=== PATIENT | male | born 1955 | race Caucasian/White ===

== ENCOUNTER → 2021-03-07 00:15 | Outpatient (CLI) | payer MEDICARE, OTHER, SELFPAY ==
[2021-03-07 19:26] LABS: SARS-CoV-2 RNA PCR Negative
== END ==
PROVIDERS: PCP Family Medicine; Visit Provider Surgery
DX: Z01.812 Encounter for preprocedural laboratory examination (principal); Z20.822 Contact with and (suspected) exposure to COVID-19
CPT/HCPCS: C9803; U0003; U0005

== ENCOUNTER 2021-03-11 01:35 | Day surgery (SDC) | payer MEDICARE, OTHER, SELFPAY ==
[2021-02-25 10:50] VITALS: BMI 32.0
--- NOTE | 2021-02-26 12:59 | PC.NURSE ---
PT STATES NO CHANGE IN HEALTH HX FROM LAST INTERVIEW DONE ON 02/25/21
--- NOTE | 2021-03-10 13:42 | WPDANESEPPF ---
Anes - Initial Pre Proc Eval Procedure: Operation Date: 03/11/21 12:00 Proposed Procedures p Open Left Inguinal Hernia Repair with Mesh - Lb Vance MD Date/Time: 03/10/21 13:42 Surgeon: Lb Vance MD Pre Op Diagnosis: left inguinal hernia Patient Data Age: 65 Gender: M Height: 1.83 m Weight: 107 kg Allergies Allergy/AdvReac Type Severity Reaction Status Date / Time No Known Allergies Allergy Verified 03/11/21 10:37 Home Medications Medication Instructions Recorded Confirmed Type aspirin 81 mg tablet,delayed 81 mg PO DAILY 04/10/20 02/26/21 History release glucosamine sulfate 1,000 mg 1,000 mg PO BID 04/10/20 02/26/21 History capsule omega-3 fatty acids 1,000 mg 200 mg PO DAILY cap 09/01/20 02/26/21 History capsule lisinopril 20 mg tablet 20 mg PO QAM #90 tablet 03/09/21 Rx Patient hx anesthesia problems: none Family hx anesthesia problems: none PMFSH Past Medical History Medical History (Updated 03/10/21 @ 13:43 by Waldo Santos MD) History of alcohol use disorder Hypertension Obesity Surgical History Surgical History Hernia umbilical, and hydrocele right testical at same time S/P tonsillectomy S/P vasectomy Family History Family History Father Hypertension Cerebrovascular accident Grandparent Cerebrovascular accident Other Family history of malignant neoplasm Social History Social History (Updated 02/24/21 @ 13:13 by Anna Montano CMA) Smoking status: Current some day smoker Tobacco type: smokeless tobacco Smokeless tobacco user: chewing tobacco Second hand tobacco smoke exposure: Yes Alcohol intake: never Alcohol use details: DRANK FAIRLY HEAVILY UNTIL HIS 40'S Substance use: never Substance use type: does not use Living arrangements: alone Gender identity (if verbalized by the patient): Male Spiritual care concerns: No Agree to blood products: Yes Anes - Eval Final PreProcedure Day of Procedure 03/10/21 13:42 Patient weight: obese Heart: regular rate and rhythm Lungs: clear to auscultation and normal air movement Airway: Mallampati scale class II Neurological: alert and oriented Last oral intake: >/= 8 hours ASA classification: III Emergent: no Anesthetic plan: proceed Anesthesia type and monitoring: general LMA Informed Consent: The patient's anesthetic plan and its attendant risks and benefits were discussed with the patient/family/POA. Questions were solicited and answers provided to the satisfaction of the patient/family/POA.
[2021-03-11] MEDS: LACTATED RINGERS 1,000 ML 30 ML IV CONT ×2 (10:25→14:21)
[2021-03-11] MEDS: ACETAMINOPHEN 500 MG TABLET 1000 MG PO (10:29)
[2021-03-11] MEDS: KETOROLAC 15 MG/ML VIAL (*BKC) IV PUSH (10:30)
[2021-03-11 10:39] VITALS: BP 160/67; PULSE 54; RESP 18; TEMP 36.3; O2SAT 100
--- NOTE | 2021-03-11 11:25 | WPDHPUPDATE1 ---
History and Physical Update Update Date/Time: 03/11/21 11:25 History and Physical has been reviewed, including an updated exam of the patient. There are NO changes in the patient's condition. Risks, benefits, and alternatives have been discussed and questions answered. Patient agrees to proceed with procedure.
[2021-03-11] MEDS: ceFAZolin 2 GM/D5W 50 ML 2 GM/50 ML BAG IVPB (11:54)
[2021-03-11] MEDS: BUPIVACAINE HCL 0.5% PF 30 ML VIAL 15 ML INFILTRATE (12:26)
[2021-03-11 14:21] VITALS: BP 145/77; PULSE 91; RESP 16; TEMP 36.2; O2SAT 99
--- NOTE | 2021-03-11 14:23 | W.PM.PROC2 ---
Procedure Note - Detailed Date of Procedure 03/11/21 Pre-op Diagnosis left inguinal hernia Post-op Diagnosis other (Left indirect, sliding inguinal hernia) Procedure Performed Open inguinal hernia repair with mesh Surgeon Lb Vance MD Production Welding Supervisor Leatha CALLE, OR 1st assist Anesthesia general Indications Patient is a pleasant 65-year-old somewhat overweight white male who presented recently with an enlarging left inguinal hernia. Is beginning to give him more discomfort and enlarge therefore it was felt that it was reasonable to go ahead with repair. Since he is somewhat overweight on is not a ideal candidate for laparoscopic approach and he agreed to proceed on a with the open type repair since he has no urgency to get back to work quicker. Findings Patient had indirect sliding left inguinal hernia with a little bit of colon extending into the indirect sac on the left. There was significant thinning of the transversalis fascia and the floor of the inguinal area on the left from this chronic hernia. Description of Procedure The patient was placed in the supine position on the operating room table. After induction of adequate general endotracheal by [facility] Anesthesia staff, we carefully prepped the entire abdomen and scrotum with chlorhexidine. One sterile towel was placed underneath the scrotum. Four towels were placed around the left lower quadrant. Following this, a time-out was performed with the surgical team and the patient's surgical procedure and site was confirmed. We then carefully outlined a curvilinear incision in the left groin area and a curvilinear incision was made after introducing a mixture of local anesthetic, using 0.5% Marcaine with epinephrine and 1% Xylocaine plain as both an ilioinguinal nerve block and at the incision site with a 25 gauge needle. Following this, I carefully made the incision, and carried it down through the subcutaneous tissue. Nat's fascia was incised and then we identified the external oblique aponeurosis and the external ring. Following this, the same mixture of local anesthetic was infiltrated underneath the external oblique aponeurosis and this was split in the direction of it's fibers with a #15 blade initially and then using metzenbaum scissors. I then opened the external oblique through the external ring and incised this somewhat posteriorly and superiorly exposing the ilioinguinal nerve. This nerve was carefully preserved and then I carefully and meticulously dissected out the cord structures at the level of the pubic tubercle. I then surrounded these structures at the level of pubic tubercle and placed a 1/4 inch Greenfield drain around them. I then carefully dissected the hernia sac up and off of the cord tissues, and brought it up and out of the incision. We carefully dissected the layers and cremasteric tissues off the hernia sac and then eventually opened the hernia sac. Within the hernia sac we could see some colon this was reduced and with a little bit of dissection using Bovie cautery and scissors we dissected some of the lateral attachments of the colon off the in internal portion of the hernia sac such that we could close this right at the level of the internal ring. Holding this up with 4 hemostats, I carefully dissected it off the cord structures, being careful to avoid injury to the Pampiniform plexus veins, the spermatic artery and the vas. Once the hernia sac was carefully dissected back to the level of the internal ring, a suture ligation pursestring suture of 2-0 silk was used to close circumvent and close the base of the hernia sac. Following this, a 2 - 0 silk tie was placed just below this, tied tight, and then distally the hernia sac was amputated with Bovie cautery. It was then passed off the field for pathologic evaluation. There was also a thin approximately 1 cm diameter 7 cm long lipoma of the cord that was dissected off the cord structures and pa
[2021-03-11 14:35] VITALS: BP 132/69; PULSE 72; RESP 20; O2SAT 96
[2021-03-11 14:40] VITALS: BP 131/58; PULSE 72; RESP 18; O2SAT 95
--- NOTE | 2021-03-11 14:43 | SUR.PHASEI ---
[id number] - Dr. Vance at bedside talking with pt
[2021-03-11 14:50] VITALS: BP 155/77; PULSE 90; RESP 16
[2021-03-11 15:30] VITALS: BP 147/68; PULSE 73; RESP 16
== END 2021-03-11 16:00 | disposition home or self-care (01) ==
PROVIDERS: PCP Family Medicine; Visit Provider Surgery
PROC: (CPT 49525; principal; 2021-03-11 12:00)
DX: K40.90 Unilateral inguinal hernia, without obstruction or gangrene, not specified as recurrent (principal); I10 Essential (primary) hypertension; Z79.82 Long term (current) use of aspirin; E66.9 Obesity, unspecified; Z68.30 Body mass index [BMI] 30.0-30.9, adult; F17.220 Nicotine dependence, chewing tobacco, uncomplicated
CPT/HCPCS: 49525; 88300; 88304; A9270; C1781; J0690; J1100; J1885; J2405; J2704; J3010; J7120

== ENCOUNTER 2021-12-07 00:18 | Day surgery (SDC) | payer MEDICARE, OTHER, SELFPAY ==
[2021-11-24 14:51] VITALS: BMI 31.2
--- NOTE | 2021-12-05 12:18 | P.PNAN_ITS ---
Anes - Initial Pre Proc Eval Procedure: Operation Date: 12/07/21 07:30 Proposed Procedures p Screening Colonoscopy - Nolan Christie MD Date/Time: 12/05/21 12:18 Surgeon: Nolan Christie MD Pre Op Diagnosis: hx of colon polyps Patient Data Age: 66 Gender: M Height: 1.83 m Weight: 104.5 kg Allergies Allergy/AdvReac Type Severity Reaction Status Date / Time No Known Allergies Allergy Verified 11/24/21 14:49 Home Medications Medication Instructions Recorded Confirmed Type aspirin 81 mg tablet,delayed 81 mg PO DAILY 04/10/20 12/07/21 History release glucosamine sulfate 1,000 mg 1,000 mg PO BID 04/10/20 11/24/21 History capsule omega-3 fatty acids 1,000 mg 200 mg PO DAILY cap 09/01/20 11/24/21 History capsule lisinopril 20 mg tablet See Rx Instructions .ROUTE 11/02/21 11/24/21 Rx .COMPLEX #90 tablet Patient hx anesthesia problems: none Family hx anesthesia problems: none Results Review: All pre-operative results and documents have been reviewed as part of the pre-operative evaluation. [facility] Past Medical History Medical History History of alcohol use disorder Hypertension Obesity Surgical History Surgical History Hernia umbilical, and hydrocele right testical at same time Hx of inguinal hernia repair Open inguinal hernia repair with mesh on 03/11/[address] Vance at [facility] S/P tonsillectomy S/P vasectomy Family History Family History Father Hypertension Cerebrovascular accident Grandparent Cerebrovascular accident Other Family history of malignant neoplasm Social History Social History Smoking status: Former smoker Tobacco type: smokeless tobacco Smokeless tobacco user: chewing tobacco Second hand tobacco smoke exposure: Yes Alcohol intake: never Alcohol use details: DRANK FAIRLY HEAVILY UNTIL HIS 40'S Substance use: never Substance use type: does not use Living arrangements: alone Gender identity (if verbalized by the patient): Male Spiritual care concerns: No Agree to blood products: Yes Anes - Eval Final PreProcedure Day of Procedure 12/05/21 12:18 Patient weight: obese Heart: regular rate and rhythm Lungs: clear to auscultation and normal air movement Airway: Mallampati scale class II Neurological: alert and oriented Last oral intake: >/= 8 hours ASA classification: III Emergent: no Anesthetic plan: proceed Anesthesia type and monitoring: general GIVS and standard monitoring Results Review: All pre-operative results and documents have been reviewed as part of the pre-operative evaluation. Informed Consent: The patient's anesthetic plan and its attendant risks and benefits were discussed with the patient/family/POA. Questions were solicited and answers provided to the satisfaction of the patient/family/POA.
--- NOTE | 2021-12-05 13:54 | PM.HPGS ---
History of Present Illness History of Present Illness Consent: Risks, benefits, and alternatives have been discussed and questions answered. Patient agrees to proceed with procedure. Chief complaint: hx of colon polyps Narrative: Sekou Ceja is a 66 year old male here for colon cancer screening. He had 4 polyps removed 4 years ago. Review of Systems Review of Systems: All systems reviewed & are unremarkable except as noted in HPI and below PMFSH Past Medical History Medical History History of alcohol use disorder Hypertension Obesity Surgical History Surgical History Hernia umbilical, and hydrocele right testical at same time Hx of inguinal hernia repair Open inguinal hernia repair with mesh on 03/11/[address] Vance at S/P tonsillectomy S/P vasectomy Family History Family History Father Hypertension Cerebrovascular accident Grandparent Cerebrovascular accident Other Family history of malignant neoplasm Social History Social History Smoking status: Former smoker Tobacco type: smokeless tobacco Smokeless tobacco user: chewing tobacco Second hand tobacco smoke exposure: Yes Alcohol intake: never Alcohol use details: DRANK FAIRLY HEAVILY UNTIL HIS 40'S Substance use: never Substance use type: does not use Living arrangements: alone Gender identity (if verbalized by the patient): Male Spiritual care concerns: No Agree to blood products: Yes Meds Home Medications and Allergies Home Medications Medication Instructions Recorded Confirmed Type aspirin 81 mg tablet,delayed 81 mg PO DAILY 04/10/20 12/07/21 History release glucosamine sulfate 1,000 mg 1,000 mg PO BID 04/10/20 11/24/21 History capsule omega-3 fatty acids 1,000 mg 200 mg PO DAILY cap 09/01/20 11/24/21 History capsule lisinopril 20 mg tablet See Rx Instructions .ROUTE 11/02/21 11/24/21 Rx .COMPLEX #90 tablet Allergies Allergy/AdvReac Type Severity Reaction Status Date / Time No Known Allergies Allergy Verified 11/24/21 14:49 Exam Resp: Auscultation: clear to auscultation bilaterally Cardio: Rate: regular rate Rhythm: regular rhythm GI: GI Palp: Yes Soft to palpation and No Tenderness to palpation present (GI) Assessment and Plan Assessment and plan (1) History of colon polyps: Code(s): Z86.010 - Personal history of colonic polyps Status: Acute Assessment and Plan: Colonoscopy with possible biopsy or polypectomy or cautery or injection of substances.
[2021-12-07 06:28] VITALS: BP 144/79; PULSE 65; RESP 18; TEMP 36.1; O2SAT 99
[2021-12-07] MEDS: LACTATED RINGERS 1,000 ML 150 ML IV CONT (06:43)
[2021-12-07 07:55] VITALS: BP 104/56; PULSE 51; RESP 18; O2SAT 96
[2021-12-07 08:05] VITALS: BP 99/55; PULSE 50; RESP 18; O2SAT 97
[2021-12-07 08:13] VITALS: BP 110/69; PULSE 55; RESP 18; O2SAT 100
== END 2021-12-07 08:28 | disposition home or self-care (01) ==
PROVIDERS: PCP Family Medicine; Visit Provider Internal Medicine Gastroenterology
PROC: 0DJD8ZZ Inspection of Lower Intestinal Tract, Via Natural or Artificial Opening Endoscopic (ICD-10-PCS; CPT 45378; principal; 2021-12-07 07:30)
DX: Z12.11 Encounter for screening for malignant neoplasm of colon (principal); D12.4 Benign neoplasm of descending colon; K64.8 Other hemorrhoids; K57.30 Diverticulosis of large intestine without perforation or abscess without bleeding; I10 Essential (primary) hypertension; E66.9 Obesity, unspecified; Z68.30 Body mass index [BMI] 30.0-30.9, adult; F17.220 Nicotine dependence, chewing tobacco, uncomplicated
CPT/HCPCS: 45381; 45385; 88305; J2704; J7120

== ENCOUNTER 2024-12-09 10:15 | Outpatient (CLI) | payer MEDICARE, OTHER, SELFPAY ==
--- NOTE | ~2024-12-09 | MR_ITS ---
EXAMINATION: MR lumbar spine wo con DATE: 12/09/2024 11:43 INDICATION: Radiculopathy, lumbar region. TECHNIQUE: Magnetic resonance imaging (MRI) of the lumbar spine was performed without intravenous con trast. Sequences included sagittal T2-weighted FSE, sagittal T2-weighted FS FSE, sagittal T1-weighted FSE, and axial T2-weighted FSE. COMPARISON: None FINDINGS: There is 7 degrees levocurvature of lumbar spine. S1 is a transitional segment. There are S chmorl's nodes at many levels. There is mild chronic anterior wedging of T12 and L1 vertebral bodies. There is mildly decreased disc height at L1-L2, L3-L4, and L4-L5 and moderately decreased disc heigh t at L5-S1. There is ligamentum flavum hypertrophy at the disc levels from L2-L3 through L5-S1. The d istal spinal cord signal intensity is normal. The conus medullaris is at T12-L1. The following disc l evels are specifically discussed: L1-L2: The disc is bulging and has an annular fissure. There is mild bilateral facet joint osteoarthr itis. There is mild bilateral neural foraminal stenosis. There is mild central canal stenosis. L2-L3: The disc is bulging. There is severe bilateral facet joint osteoarthritis. There is mild bilat eral neural foraminal stenosis. There is mild central canal stenosis. L3-L4: The disc is bulging and has an annular fissure. There is severe bilateral facet joint osteoart hritis. There is mild bilateral neural foraminal stenosis. There is moderate central canal stenosis. L4-L5: The disc is bulging and has an annular fissure. There is mild bilateral facet joint osteoarthr itis. There is moderate bilateral neural foraminal stenosis. There is moderate central canal stenosis . L5-S1: The disc is bulging and has an annular fissure. There is moderate right and severe left facet joint osteoarthritis. There is mild right and moderate left neural foraminal stenosis. There is mild central canal stenosis. There is severe stenosis of left lateral recess. IMPRESSION: 1. Moderate lumbar spondylosis. Reviewed, dictated and finalized at location A.
--- OUTSIDE RECORDS SUMMARY | 2024-12-09 10:19 | XMS_ITS | Clinical Summary ---
Author Organization [facility] Address [address] [place] [address] Care Team Providers Care Sap Director Name Role Phone Ingrid Carr [facility] Primary Care Provider + Allergies No known active allergies Medications lisinopril (PRINIVIL) 20 MG tablet Take 1 tablet (20 mg total) by mouth 2 (two) times daily. 5 Active amLODIPine (NORVASC) 5 MG tablet Take 1 tablet (5 mg total) by mouth daily. 5 Active methylPREDNISol one, DARWIN, (MEDROL DOSEPAK) 4 MG tablet Take 1 tablet (4 mg total) by mouth 2 (two) times daily. Follow package directions 1 each 5 Active meloxicam (MOBIC) 7.5 MG tablet Take 1 tablet (7.5 mg total) by mouth daily. 30 tablet 5 Active Encounters Date Type Department Care Team Description 10/15/2024 1:38 PM MARKETING INTELLIGENCE ANALYST - 10/15/2024 4:16 PM [facility] Emergency [facility] Emergency Room [address] [place] [address] Steven Briggs MD Back Pain Discharge Disposition: Home or Self Care (Routine Discharge) 10/15/2024 Travel from Last 3 Months Social History Tobacco Use Types Packs/Day Years Used Date Smoking Tobacco: Never Passive Smoke Exposure: Never Smokeless Tobacco: Never Tobacco Cessation:Counseling Given: Not Answered Sex and Gender Information Value Date Recorded Sex Assigned at Not on file Legal Sex Male 8:25 PM CDT Gender Identity Not on file Sexual Orientation Not on file Last Filed Vital Signs Vital Sign Reading Time Taken Comments Blood Pressure 179/70 10/15/2024 1:50 PM MARKETING INTELLIGENCE ANALYST Pulse 62 10/15/2024 1:50 PM MARKETING INTELLIGENCE ANALYST Temperature 36.7 C (98 F) 10/15/2024 1:50 PM MARKETING INTELLIGENCE ANALYST Respiratory Rate 18 10/15/2024 1:50 PM MARKETING INTELLIGENCE ANALYST Oxygen Saturation 100% 10/15/2024 1:50 PM MARKETING INTELLIGENCE ANALYST Inhaled Oxygen Concentration - - Weight 72.6 kg (160 lb) 10/15/2024 1:42 PM MARKETING INTELLIGENCE ANALYST Height 182.9 cm (6') 10/15/2024 1:42 PM MARKETING INTELLIGENCE ANALYST Body Mass Index 21.7 10/15/2024 1:42 PM MARKETING INTELLIGENCE ANALYST Plan of Treatment Health Maintenance Due Date Last Done Comments Colorectal Cancer Screening Colonoscopy (10 Years) 1954 Hepatitis C 1972 DTaP, Tdap and Td Vaccines (1 - Tdap) 1973 Zoster Vaccines (1 of 2) 2004 Annual Medicare Wellness Visit 2019 Pneumococcal Vaccine: 65+ Years Completed 07/28/2023, 10/13/2022, 10/28/2021, Additional history exists RSV Immunization or 60+ Years Completed 07/28/2023 COVID-19 Vaccine Completed 07/17/2024, 05/2023, 08/02/2022, Additional history exists Influenza Adult Completed 07/17/2024, 07/16/2020 Meningococcal B Vaccine Aged Out No l onger eligible based on patient's age to complete this topic Meningococcal Vaccine Aged Out No meng yi eligible based on patient's age to complete this topic RSV Immunizations Under 20 Months Aged Out No longer eligible based on patient's age to complete this topic Procedures Procedure Name Priority Date/Time Associated Diagnosis Comments XR LUMB SPINE 3V STAT 10/15/2024 3:06 PM MARKETING INTELLIGENCE ANALYST from Last 3 Months Results * XR LUMB SPINE 3V (10/15/2024 3:06 PM MARKETING INTELLIGENCE ANALYST) Anatomical Region Laterality Modality Spine Radiographic Kelly ging 10/15/2024 3:47 PM MARKETING INTELLIGENCE ANALYST Impressions 10/15/2024 3:50 PM MARKETING INTELLIGENCE ANALYST IMPRESSION: 1. No acute abnormality. 2. Degenerative changes as described. Ordered By: STEVEN BRIGGS Interpreted By: Ayad Ely MD, 10/15/2024 3:47 PM Narrative 10/15/2024 3:50 PM MARKETING INTELLIGENCE ANALYST [facility] [address] [place] [address] Examination: XR LUMB SPINE 3V Exam time: 10/15/2024 2:58 PM Clinical history: Low back pain with radiation down right leg. No known injury. Comparison: No prior exam Technique: AP, lateral, and lumbosacral views Findings: There is minimal levoconvex curvature of the lumbar spine. There are 5 lumbar-type vertebra. There appears to be minimal bilateral lumbarization of the first sacral segment with bilateral pseudoarthroses and a rudimentary S1-2 disc space consistent with developmental variation. There is no evidence of fracture or acute osseous abnormality throughout the lumbar spine. There is mild decrease intervertebral disc height L1-2 level with moderate anterior vertebral body endplate spurring. Minimal anterior vertebral body endplate spurring L2-3 level with disc height maintained. Moderate decrease intervertebral disc height L3-4 level with mild anterior vertebral body endplate spurring. Moderate decrease intervertebral disc height L4-5 level with minimal retrolisthesis of L4 on L5 and anterior vertebral body endplate spurring. Moderate decrease intervertebral disc height L5-S1 level with minimal anterior vertebral body endplate spurring. Prominent facet joint arthritic change. Sacroiliac joints appear unremarkable. Visualized sacral ala appear intact. Atherosclerotic calcifications aortoiliac vessels. Procedure Note Ayad Ely MD - 10/15/2024 [facility] [address] [place] [address] Examination: XR LUMB SPINE 3V Exam time: 10/15/2024 2:58 PM Clinical history: Low back pain with radiation down right leg. No knowninjury. Comparison: No prior exam Technique: AP, lateral, and lumbosacral views Findings: There is minimal levoconvex curvature of the lumbar spine. Thereare 5 lumbar-type vertebra. There appears to be minimal bilaterallumbarization of the first sacral segment with bilateral pseudoarthrosesand a rudimentary S1-2 disc space consistent with developmentalvariation. There is no evidence of fracture or acute osseous abnormality throughoutthe lumbar spine. There is mild decrease intervertebral disc height L1-2 level with moderateanterior vertebral body endplate spurring. Minimal anterior vertebral body endplate spurring L2-3 level with discheight maintained. Moderate decrease intervertebral disc height L3-4 level with mild anteriorvertebral body endplate spurring. Moderate decrease intervertebral disc height L4-5 level with minimalretrolisthesis of L4 on L5 and anterior vertebral body endplatespurring. Moderate decrease intervertebral disc height L5-S1 level with minimalanterior vertebral body endplate spurring. Prominent facet joint arthriticchange. Sacroiliac joints appear unremarkable. Visualized sacral ala appearintact. Atherosclerotic calcifications aortoiliac vessels. IMPRESSION: 1. No acute abnormality. 2. Degenerative changes as described. Ordered By: STEVEN BRIGGS Interpreted By: Ayad Ely MD, 10/15/2024 3:47 PM Steven Briggs MD GENERAL IMAGING Final Result from Last 3 Months Insurance MEDICARE Care Teams Sap Director Relationship Specialty Start Date End Date Ingrid Carr, AUTOMOTIVE GLASS INSTALLER- [address] [place] [address] PCP - General Nurse Practitioner Family 10/15/24
== END 2024-12-09 10:16 | disposition home or self-care (01) ==
PROVIDERS: PCP Nurse Practitioner Family; Visit Provider Nurse Practitioner Family
DX: M54.16 Radiculopathy, lumbar region (principal); R20.0 Anesthesia of skin; R20.2 Paresthesia of skin; M43.06 Spondylolysis, lumbar region
CPT/HCPCS: 72148

== ENCOUNTER 2025-01-01 13:16 | Outpatient (CLI) | payer MEDICARE, OTHER, SELFPAY ==
--- NOTE | ~2025-01-01 | CT_ITS ---
Noncontrast CT scan of the lumbar spine CLINICAL HISTORY: Injury TECHNIQUE: Axial noncontrast imaging of the lumbar spine was performed. Sagittal and coronal reformat santhosh images were constructed. Dose reduction technique was used on this scan by utilizing automated ex posure control and iterative reconstruction technique. The dose-length product (DLP) was 997.95 mGy-c m. FINDINGS: There is no fracture or subluxation of the lumbar spine. Vertebral bodies maintain normal h eight. At L1-L2, there is moderate degenerative disc narrowing. There is minimal disc bulge and minimal face t arthropathy. No central canal stenosis. Probable mild bilateral neural foraminal narrowing. At L2-L3, there is mild degenerative disc narrowing. There is minimal disc bulge and moderate facet a rthropathy. No red central canal stenosis. There is moderate bilateral neural foraminal narrowing. At L3-L4, there is disc bulge and facet arthropathy resulting in severe spinal canal stenosis/thecal sac compression. There is severe right neural foraminal narrowing, and moderate to severe left neural foraminal narrowing. At L4-L5, there is severe degenerative distended. Disc bulge and severe facet arthropathy result in s evere spinal canal stenosis/thecal sac compression. There is severe bilateral neural foraminal compri se. At L5-S1, there is mild disc bulge with severe facet arthropathy. There is moderate central canal keyshawn nosis. There is severe bilateral neural foraminal narrowing. Impression: Severe degenerative spondylosis, especially at L3-L4, L4-L5, and L5-S1. Reviewed, dictated and finalized at location . Impression: Severe degenerative spondylosis, especially at L3-L4, L4-L5, and L5-S1.
--- OUTSIDE RECORDS SUMMARY | 2025-01-01 14:13 | XMS_ITS | Clinical Summary ---
Author Organization [facility] Address [address] [place] [address] Care Team Providers Care Nail Technician Name Role Phone Ingrid Carr [facility] Primary Care Provider + Allergies No known [...] Department Care Team Description 10/15/2024 1:38 PM MANAGER HEART - 10/15/2024 4:16 PM [facility] Emergency [facility] Emergency Room [address] [place] [address] Steven Briggs MD Back Pain Discharge Disposition: [...] Comments Blood Pressure 179/70 10/15/2024 1:50 PM MANAGER HEART Pulse 62 10/15/2024 1:50 PM MANAGER HEART Temperature 36.7 C (98 F) 10/15/2024 1:50 PM MANAGER HEART Respiratory Rate 18 10/15/2024 1:50 PM MANAGER HEART Oxygen Saturation 100% 10/15/2024 1:50 PM MANAGER HEART Inhaled Oxygen Concentration - - Weight 72.6 kg (160 lb) 10/15/2024 1:42 PM MANAGER HEART Height 182.9 cm (6') 10/15/2024 1:42 PM MANAGER HEART Body Mass Index 21.7 10/15/2024 1:42 PM MANAGER HEART Plan of Treatment Health Maintenance Due Date Last Done Comments Colorectal Cancer Screening Colonoscopy (10 Years) 1954 Hepatitis C 1972 DTaP, Tdap and Td Vaccines (1 - Tdap) 1973 Zoster Vaccines (1 of 2) 2004 Annual Medicare Wellness Visit 2019 COVID-19 Vaccine ( season) 2025 07/17/2024, 06/27/2023, 08/02/2022, Additional history exists Pneumococcal Vaccine: 50+ Years Completed 07/28/2023, 10/13/2022, 10/28/2021, Additional history exists RSV Immunization or 60+ Years Completed 07/28/2023 Meningococcal B Vaccine Aged Out No l [...] LUMB SPINE 3V STAT 10/15/2024 3:06 PM MANAGER HEART from Last 3 Months Results * XR LUMB SPINE 3V (10/15/2024 3:06 PM MANAGER HEART) Anatomical Region Laterality Modality Spine Radiographic Kelly ging 10/15/2024 3:47 PM MANAGER HEART Impressions 10/15/2024 3:50 PM MANAGER HEART IMPRESSION: 1. No acute abnormality. 2. Degenerative changes as described. Ordered By: STEVEN BRIGGS Interpreted By: Ayad Ely MD, 10/15/2024 3:47 PM Narrative 10/15/2024 3:50 PM MANAGER HEART [facility] [address] [place] [address] Examination: XR LUMB SPINE 3V Exam time: [...] Procedure Note Ayad Ely MD - 10/15/2024 [facility] [address] [place] [id number] Examination: XR LUMB SPINE 3V Exam time: [...] Last 3 Months Insurance MEDICARE Care Teams Nail Technician Relationship Specialty Start Date End Date Ingrid Carr, KNITTED CLOTH EXAMINER- [facility] [place] [address] PCP - General Nurse Practitioner Family 10/15/24
== END 2025-01-01 13:17 | disposition home or self-care (01) ==
PROVIDERS: PCP Nurse Practitioner Family; Visit Provider Neurological Surgery
DX: S34.109A Unspecified injury to unspecified level of lumbar spinal cord, initial encounter (principal); M21.371 Foot drop, right foot; X58.XXXA Exposure to other specified factors, initial encounter; M47.896 Other spondylosis, lumbar region
CPT/HCPCS: 72131

== ENCOUNTER 2025-01-22 13:44 | Outpatient (CLI) | payer MEDICARE, OTHER, SELFPAY ==
--- NOTE | ~2025-01-22 | XR_ITS ---
XR chest 2V Ordering provider: Adrian Epsinoza MD History: 69 years Male with . M21.371 - Foot drop, right foot, pre-op, HTN . Comparison: None. FINDINGS: MEDIASTINUM: The cardiac silhouette is not enlarged. LUNGS: No infiltrates, effusions or pneumothorax. OTHER: No free air under the diaphragm. Degenerative changes of the spine. IMPRESSION: No acute cardiopulmonary pathology. Reviewed, dictated and finalized at location A.
--- OUTSIDE RECORDS SUMMARY | 2025-01-22 13:54 | XMS_ITS | Clinical Summary ---
Author Organization [facility] Address [address] [place] [address] Care Team Providers Care Hop Picker Name Role Phone Ingrid Carr [facility] Primary Care Provider + Allergies No known [...] by mouth daily. 30 tablet 5 Active Social History Tobacco Use Types Packs/Day Years [...] Comments Blood Pressure 179/70 10/15/2024 1:50 PM AIDS NURSE Pulse 62 10/15/2024 1:50 PM AIDS NURSE Temperature 36.7 C (98 F) 10/15/2024 1:50 PM AIDS NURSE Respiratory Rate 18 10/15/2024 1:50 PM AIDS NURSE Oxygen Saturation 100% 10/15/2024 1:50 PM AIDS NURSE Inhaled Oxygen Concentration - - Weight 72.6 kg (160 lb) 10/15/2024 1:42 PM AIDS NURSE Height 182.9 cm (6') 10/15/2024 1:42 PM AIDS NURSE Body Mass Index 21.7 10/15/2024 1:42 PM AIDS NURSE Plan of Treatment Health Maintenance Due Date [...] on patient's age to complete this topic Insurance [facility] MEDICARE Care Teams Hop Picker Relationship Specialty Start Date End Date Ingrid Carr, [employer]- [address] [place] [id number] PCP - General Nurse Practitioner Family 10/15/24
--- NOTE | 2025-01-22 14:44 | ECG_ITS ---
Test Date: 2025-01-22 15:05:29 Measurements Intervals [place] Rate: 61 P: 1 VA: 187 QRS: 4 QRSD: 103 T: 18 QT: 448 QTc: 452 Interpretive Statements SINUS RHYTHM No previous ECG available for comparison Electronically Signed On 01-22-2025 15:28:41 CDT by Jena Magallanes M.D.
[2025-01-22 15:18] LABS: Hematocrit 42.9 % (42.0-52.0); Hemoglobin 14.2 g/dL (14.0-18.0); Mean Corpuscular HGB Conc 33.1 g/dl (32-36); Mean Corpuscular Hemoglobin 28.8 pg (26-34); Mean Platelet Volume 9.8 fl (7.4-10.4); Platelet Count Result 234 k/mm3 (150-375); Red Blood Count 4.93 M/mm3 (4.6-6.20); Red Cell Distribution Width 15.4 % (11.5-14.5); White Blood Count 8.8 K/mm3 (4.5-10.0)
[2025-01-22 15:20] LABS: Add Urine Microscopic? NO; Appearance Urine Clear (Clear); Bilirubin Urine Negative (Negative); Blood Urine Negative (Negative); Color Urine Yellow (Yellow); Glucose Urine UA Negative (Negative); Ketones Urine Negative (Negative); Leukocyte Esterase Ur Negative LEU/UL (Negative); Nitrate Urine Negative (Negative); Protein Urine Negative (Negative)
[2025-01-22 15:32] LABS: Prothrombin Time 13.5 Seconds (11.1-14.7)
[2025-01-22 15:33] LABS: Partial Thromboplastin Time 27.1 Seconds (22.3-36.8)
[2025-01-22 15:44] LABS: Anion Gap 8 mmol/L (4-12); Blood Urea Nitrogen 16 mg/dL (9-20); Calcium 9.5 mg/dL (8.4-10.2); Carbon Dioxide 28 mmol/L (22-30); Chloride 101 mmol/L (98-107); Estimated Glomerular Filt Rate > 60; Glucose 95 mg/dL (65-110); Potassium 3.9 mmol/L (3.4-5.0); Sodium 137 mmol/L (137-145)
== END 2025-01-22 13:45 | disposition home or self-care (01) ==
PROVIDERS: PCP Nurse Practitioner Family; Visit Provider Neurological Surgery
DX: M21.371 Foot drop, right foot (principal); M48.061 Spinal stenosis, lumbar region without neurogenic claudication; I10 Essential (primary) hypertension; E78.5 Hyperlipidemia, unspecified; Z01.818 Encounter for other preprocedural examination
CPT/HCPCS: 36415; 71046; 80048; 81003; 85027; 85610; 85730; 93005

== ENCOUNTER 2025-02-08 01:49 | Day surgery (SDC) | payer MEDICARE, OTHER, SELFPAY ==
[2025-01-22 14:00] VITALS: BP 153/68; PULSE 61; RESP 16; TEMP 36.7; O2SAT 100; BMI 30.6
--- NOTE | 2025-01-22 14:18 | PC.NURSE ---
Addendum entered by Paige Cifuentes RN 01/22/25 14:24: Pt is to recheck his BP and make sure it is back to baseline or will let his PCP know preop JRRN Original Note: Report to the Outpatient Waiting Room, entrance under the green pavilion located off [facility], at time __0830am on date __02/08/25 . Planned Procedure Time: _1030am .? Time changes happen often and if your time is changed the preop area will call you the afternoon before. - You and your visitor will be asked to self-screen and do not enter if you have any COVID symptoms. Please call surgeon if you need to reschedule. - A mask is optional within the hospital at this time. Patients may have clear liquids (water, carbonated beverages, clear teas, apple juice) until 3 hours prior to surgery with a maximum of 20 ounces. - No food from midnight until time of surgery and no smoking, or chewing tobacco (or any form of nicotine). No chewing gum, candy or mints.(0730am) Take only the following medications with a SIP of water on the morning of surgery: ___Amlodipine DO NOT STOP ANY OF YOUR OTHER PRESCRIPTION MEDICATIONS PRIOR TO SURGERY EXCEPT THE FOLLOWING Hold all vitamins and supplements for 3 days per anesthesiologist. Medications to discontinue per physician Aspirin and NSAIDS/Motrin/Aleve/FISH OIL for [address] Espinoza Date to take last dose____01/30/25 Please no make-up, nail macedonian, hairspray, perfume, deodorant, or body powder the day of surgery.? No jewelry (including any body piercings) or valuables the day of surgery, leave them at home.? Please take a shower or bath the night before, or the morning of, surgery with an antibacterial soap.? Wear comfortable, loose fitting clothing.?HIbicleanse scrub as ordered. Overnight bag and cell phone land checker if needed w phone - Jewelry must be removed prior to entering the operating room.? Rings and piercings that are not removed may be cut off. - The hospital will not accept responsibility for valuables.? - Please leave all valuables, including medications, at home the day of surgery. If you are going home after surgery, a licensed armored car driver must drive you home.? - NO public transportation without another adult if you receive anesthesia. - We recommend that an adult stay with you for 24 hours following discharge. - We also recommend that you do not drive, make important decision, drink alcoholic beverages, or take any drugs that were not prescribed by your health care provider for at least 24 hours after your discharge time. Follow any additional instructions given to you from your surgeon. Telephone instructions given to ___Patient and asked if any additional questions and then verbalized understanding. Patient advised to call surgeon office or pre surgery nurse liaison [phone] if any additional questions.
[2025-02-08] VITALS (15 sets, daily range): BP systolic 135–183; BP diastolic 60–88; PULSE 69–99; RESP 12–20; TEMP 36.3–36.9; O2SAT 95–100; BMI 29.6
--- NOTE | ~2025-02-08 | XR_ITS ---
INTRAOPERATIVE FLUOROSCOPY: CLINICAL HISTORY: 69 years old Male; BILATERAL LUMBAR LAMINECTOMY PROCEDURE COMMENTS: Limited intraoperative fluoroscopy of the lumbar spine was performed. CUMULATIVE DOSE: 19.6 mGy FLUOROSCOPY TIME: 13.4 seconds FINDINGS/IMPRESSION: Please refer to operative note for further details. Reviewed, dictated and finalized at location A.
[2025-02-08] MEDS: LACTATED RINGERS 1,000 ML 30 ML IV CONT ×2 (09:00→15:34)
--- NOTE | 2025-02-08 12:32 | SUR.PREOP ---
PT UPDATED ON SURGERY TIME
--- NOTE | 2025-02-08 12:47 | P.HP_ITS ---
H&P: HPI History of Present Illness Date/Time: 02/08/25 12:47 Chief Complaint: foot drop Narrative: 69-year-old gentleman presents with a sharp pain on his right back as of September 2024. He monitor the symptoms for few days and noticed that pain radiated down his right lateral leg and was very extreme and a burning sensation. He ultimately went to the emergency department to have this evaluated where he had x-ray was told he had arthritis sciatic pain. Was given some meloxicam and Medrol Dosepak and sent home. This did not significantly improve pain so we tried ice this also helped somewhat but did not significantly improve the pain so he went to see a chiropractor who did some adjustments this did not improve pain. He then went to see his physician emergency veterinary assistant for MRI scan. And also for physical therapy. The therapy did improve his symptoms the pain did not radiate it is much in the upper thigh and past the knee however he still radiating pain on the lateral calf mom arch of his foot toe. 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 HE underwent workup with MRI which indicated severe lumbar spinal stenosis from L3-S1. [facility] Past Medical History Medical History Screening cholesterol level Obesity Hypertension History of alcohol use disorder Surgical History Surgical History Hx of inguinal hernia repair Open inguinal hernia repair with mesh on 03/11/[address] Vance at [facility] S/P vasectomy S/P tonsillectomy Hernia umbilical, and hydrocele right testical at same time Family History Family History (Updated 12/21/24 @ 08:26 by Alka Morel CMA) Father Hypertension Cerebrovascular accident Grandparent Cerebrovascular accident Sibling Hypertension Other Family history of malignant neoplasm Social History Social History Social History: 11/27/24 Pt declined to complete SDOH Smoking status: Current every day smoker Tobacco type: smokeless tobacco Smokeless tobacco user: chewing tobacco Second hand tobacco smoke exposure: Yes Alcohol intake: former Alcohol use details: DRANK FAIRLY HEAVILY UNTIL HIS 40'S Substance use: never Substance use type: does not use Do You Feel Safe in your Home?: Yes Lack of Transportation: No Lack of Food: Never True Current Housing: I Have Housing Concerned About Future Housing: Decline to Answer Difficulty Paying Gas/Electric Bills: Decline to Answer Difficulty Paying for Meds: Decline to Answer Currently Unemployed: Decline to Answer Education: Don't Know Difficulty w/ Childcare or Family Care: Decline to Answer Living arrangements: alone Occupation/Education: retired Gender identity (if verbalized by the patient): Male Spiritual care concerns: No Agree to blood products: Yes Meds Home Medications and Allergies Home Medications ?Medication ?Instructions ?Recorded ?Confirmed ?Type aspirin 81 mg tablet,delayed 81 mg PO DAILY 04/10/20 02/08/25 History release glucosamine sulfate 1,000 mg 1,000 mg PO BID 04/10/20 01/22/25 History capsule omega-3 fatty acids 1,000 mg 200 mg PO DAILY 09/01/20 02/08/25 History capsule lisinopril 20 mg tablet 20 mg PO BID #180 tabs 09/25/24 02/08/25 Rx amlodipine 10 mg tablet 10 mg PO DAILY #90 tabs 12/21/24 02/08/25 Rx Allergies Allergy/AdvReac Type Severity Reaction Status Date / Time No Known Allergies Allergy Verified 02/08/25 10:06 Vital Signs Vital Signs - 24 hr 02/08/25 08:30 Temperature 97.5 F L Pulse Rate 72 Respiratory Rate 20 Blood Pressure 148/75 H Pulse Oximetry 99 Exam Const: Other: awake alert no acute distress MAEW except for right foot with 3/5 right foot drop. Assessment and Plan Assessment and plan (1) Foot drop, right: Code(s): M21.371 - Foot drop, right foot Status: Acute Assessment and Plan: 69 year old male who presents with right foot drop and severe lumbar spinal stenosis from L3-S1. Plan proceed with L3-S1 bilateral lumbar laminectomy and bilateral medial facetectomy.
--- NOTE | 2025-02-08 12:47 | WPDHPUPDATE1 ---
History and Physical Update Update Date/Time: 02/08/25 12:47 History and Physical has been reviewed, including an updated exam of the patient. There are NO changes in the patient's condition. Risks, benefits, and alternatives have been discussed and questions answered. Patient agrees to proceed with procedure.
--- NOTE | 2025-02-08 13:10 | WPDANESEPPF ---
Anes - Initial Pre Proc Eval Procedure: Operation Date: 02/08/25 10:30 Proposed Procedures p L3-4, L4-5, L5-S1 Bilateral Lumbar Laminectomy - Adrian Espinoza MD Date/Time: 02/08/25 13:10 Surgeon: Adrian Espinoza MD Pre Op Diagnosis: lumbar stenosis, foot drop Patient Data Age: 69 Gender: M Height: 1.83 m Weight: 99.1 kg Last Vital Signs Temp 97.5 F L 02/08/25 08:30 Pulse 72 02/08/25 08:30 Resp 20 02/08/25 08:30 BP 148/75 H 02/08/25 08:30 Pulse Ox 99 02/08/25 08:30 O2 Del Method Room Air 01/22/25 14:00 Allergies Allergy/AdvReac Type Severity Reaction Status Date / Time No Known Allergies Allergy Verified 02/08/25 10:06 Home Medications ?Medication ?Instructions ?Recorded ?Confirmed ?Type aspirin 81 mg tablet,delayed 81 mg PO DAILY 04/10/20 02/08/25 History release glucosamine sulfate 1,000 mg 1,000 mg PO BID 04/10/20 01/22/25 History capsule omega-3 fatty acids 1,000 mg 200 mg PO DAILY 09/01/20 02/08/25 History capsule lisinopril 20 mg tablet 20 mg PO BID #180 tabs 09/25/24 02/08/25 Rx amlodipine 10 mg tablet 10 mg PO DAILY #90 tabs 12/21/24 02/08/25 Rx Laboratory Tests 02/08/25 08:50 Blood Type A Negative Antibody Screen Negative Patient hx anesthesia problems: none Family hx anesthesia problems: none Results Review: All pre-operative results and documents have been reviewed as part of the pre-operative evaluation. [facility] Past Medical History Medical History Hyperlipidemia Osteoarthritis Screening cholesterol level Obesity Hypertension History of alcohol use disorder Surgical History Surgical History Hx of inguinal hernia repair Open inguinal hernia repair with mesh on 03/11/[address] Vance at [facility] S/P vasectomy S/P tonsillectomy Hernia umbilical, and hydrocele right testical at same time Family History Family History Father Hypertension Cerebrovascular accident Grandparent Cerebrovascular accident Sibling Hypertension Other Family history of malignant neoplasm Social History Social History Social History: 11/27/24 Pt declined to complete SDOH Smoking status: Current every day smoker Tobacco type: smokeless tobacco Smokeless tobacco user: chewing tobacco Second hand tobacco smoke exposure: Yes Alcohol intake: former Alcohol use details: DRANK FAIRLY HEAVILY UNTIL HIS 40'S Substance use: never Substance use type: does not use Do You Feel Safe in your Home?: Yes Lack of Transportation: No Lack of Food: Never True Current Housing: I Have Housing Concerned About Future Housing: Decline to Answer Difficulty Paying Gas/Electric Bills: Decline to Answer Difficulty Paying for Meds: Decline to Answer Currently Unemployed: Decline to Answer Education: Don't Know Difficulty w/ Childcare or Family Care: Decline to Answer Living arrangements: alone Occupation/Education: retired Gender identity (if verbalized by the patient): Male Spiritual care concerns: No Agree to blood products: Yes Anes - Eval Final PreProcedure Day of Procedure 02/08/25 13:10 Patient weight: overweight Heart: regular rate and rhythm Lungs: clear to auscultation Airway: Mallampati scale class II Neurological: alert and oriented Last oral intake: >/= 8 hours ASA classification: III Emergent: no Anesthetic plan: proceed Anesthesia type and monitoring: general GIVS Results Review: All pre-operative results and documents have been reviewed as part of the pre-operative evaluation. Informed Consent: The patient's anesthetic plan and its attendant risks and benefits were discussed with the patient/family/POA. Questions were solicited and answers provided to the satisfaction of the patient/family/POA.
[2025-02-08] MEDS: ceFAZolin 2 GM/D5W 50 ML 2 GM/50 ML BAG IVPB ×2 (13:19→21:21)
[2025-02-08] MEDS: BUPIVACAINE/EPINEPHRINE 0.5% 50 ML VIAL 10 ML INFILTRATE (14:22)
--- NOTE | 2025-02-08 15:20 | P.OP_ITS ---
Procedure Note - Detailed Date of Procedure 02/08/25 Pre-op Diagnosis lumbar stenosis, foot drop Post-op Diagnosis Same Procedure Performed L3-S1 Bilateral lumbar laminectomy and medial facetectomy. Surgeon Adrian Espinoza MD Anesthesia General Indications Lumbar spinal stenosis and right-sided footdrop Findings Severe lumbar spinal stenosis at L3-4, L4-5, L5-S1 Description of Procedure The patient is brought into the operating room and turned over to Anesthesia for intubation. Once this was complete the patient was positioned prone onto the Pineda frame. All bony prominences padded. Lateral fluoroscopy was brought in to confirm the L3-S1 level of note the patient has an abnormal lumbar number where he has 6 lumbar vertebral bodies or a lumbarized S1. This was taken into account when counting. I reviewed the x-rays CT and preoperative MRI scans and matched the corresponding stenotic levels L3-S1 avoiding the lumbarized S1. I reviewed this with the professor of radiology and members of the staff during time out. The patient was then prepped and draped in the usual sterile fashion. Final time-out was performed indicating correct patient procedure and site. Local anesthetic was infiltrated along the planned incision line. The skin was then opened with a scalpel down to the fascia. Retractors were placed Bovie electrocautery was used to perform a subperiosteal dissection of the muscle up away from the lamina and the medial facet joints. Suffer tight retaining retractors were then replaced. I then used a upgoing curette to go underneath the lamina of L3 as well as some element of S1. This was that then confirmed on lateral fluoroscopy to yehuda the L3-4 common L5-S1 disc space. The levels were then marked and the curettes were removed and the fluoro was removed from the field. I then moved on to the laminectomy portion of the case. I used a Leksell rongeur to remove the spinous processes from L3-S1. I drilled for bilateral trough laminectomies from L3-S1. The lamina was carefully removed on bloc. I then used a Kerrison rongeur to remove any additional bone islands and bone spurs laterally and centrally I then used a Alburnett 4 to feel out laterally to make sure that the thecal sac was decompressed. There were no additional spurs at this point all ligamentum was removed and the thecal sac appeared slack. I then brought in lateral fluoroscopy and put nerve hooks at the rostral and caudal extension of laminectomy site and confirmed that it spanned the L3 to the S1 disc spaces. The wound was then irrigated and FloSeal was placed to obtain additional hemostasis. At this point I placed bone wax along all the open facet medial facet joints to stop any additional bleeding the wounds he again again irrigated the muscle and tissues laterally were then bipolar cauterized at any point that was bleeding. A drain was then placed. And the wound was then closed in layers. The patient tolerated the procedure well was turned over to Anesthesia for extubation. Estimated Blood Loss 100 IV Fluids 1,800 Urine Output 300 Drains Yes Complications No immediate complications Condition Stable [facility] Billing Surgery - Charge Forward: Surgery Billing
--- NOTE | 2025-02-08 16:00 | WPDNEUROSGPN ---
Subjective Date/time seen: 02/08/25 16:00 Interval history: Patient is doing well after surgery he still has his right chronic foot drop this is not improved from prior to surgery but I would not necessarily expect to improve immediately. Otherwise he is doing well without any new focal neurologic deficits. His pain is controlled. Objective Data Vital Signs Vital Signs: Vital Signs - 24 hr 02/08/25 08:30 02/08/25 15:34 02/08/25 15:45 Temperature 97.5 F L 98.5 F Pulse Rate 72 84 78 Respiratory Rate 20 12 20 Blood Pressure 148/75 H 165/82 H 159/88 H Pulse Oximetry 99 100 95 Oxygen Delivery Simple Face Mask Room Air Oxygen Flow Rate 8 Intake/Output Intake/Output: Intake & Output 02/05/25 02/06/25 02/07/25 02/08/25 23:59 23:59 23:59 23:59 Intake Total 1850 Output Total 300 Balance 1550 Meds/Results Medications: Active Medications Generic Name Dose Route Start Last Admin Trade Name Freq PRN Reason Stop Dose Admin Fentanyl Citrate 25 mcg 02/07/25 15:35 Fentanyl Citrate Inj (*Crx) 100 Mcg/2 Ml Vial IV PUSH Q2M PRN Pain Lactated Ringer's 1,000 mls @ 30 mls/hr 02/07/25 15:35 02/08/25 15:34 Lr - Lactated Ringers Iv IV CONT Infused .Q24H AKILA Infusion Lactated Ringer's 1,000 mls @ 30 mls/hr 02/07/25 15:35 02/08/25 15:34 Lr - Lactated Ringers Iv IV CONT 30 mls/hr .Q24H AKILA Administration Ondansetron HCl 4 mg 02/07/25 15:35 Ondansetron Inj 4 Mg/2 Ml Vial IV PUSH ONCE PRN Nausea Labs Labs: Laboratory Results - last 24 hr 02/08/25 08:50 Blood Type A Negative Antibody Screen Negative
[2025-02-08] MEDS: fentaNYL CITRATE INJ (*CRX) 100 MCG/2 ML VIAL 25 MCG IV PUSH ×4 (16:39→16:53)
--- NOTE | 2025-02-08 17:35 | ADMGEN ---
This patient, Sekou Ceja, was admitted to -. Patient/family oriented to hospital policies and general routines including ID bracelet, bed and alarms, visiting hours, pain management, procedures, bathroom and other care routines, personal items, smoking policy, room service/diet, and visiting hours. Information on how to activate the Rapid Response Team has been discussed. Patient/Family are encouraged to report perceived risks to care and to ask questions if they do not understand what they are told or what they should do.
[2025-02-08] MEDS: HYDROcodone/acetaminophen (*CRX) 10-325 MG TABLET 1 TAB PO (18:05)
[2025-02-08] MEDS: lisinopriL 20 MG TABLET PO (21:20)
[2025-02-08] MEDS: DOCUSATE SODIUM 100 MG CAPSULE PO (21:20)
[2025-02-09 00:14] VITALS: BP 109/48; PULSE 63; RESP 18; TEMP 36.6; O2SAT 97
[2025-02-09 04:14] VITALS: BP 151/79; PULSE 70; RESP 16; TEMP 36.3; O2SAT 99
[2025-02-09 08:14] VITALS: BP 148/59; PULSE 86; RESP 18; TEMP 36.8; O2SAT 98
[2025-02-09] MEDS: lisinopriL 20 MG TABLET PO (08:53)
[2025-02-09] MEDS: DOCUSATE SODIUM 100 MG CAPSULE PO (08:53)
[2025-02-09] MEDS: amLODIPine BESYLATE 10 MG TABLET PO (08:53)
[2025-02-09] MEDS: ceFAZolin 2 GM/D5W 50 ML 2 GM/50 ML BAG IVPB (08:54)
[2025-02-09] MEDS: ACETAMINOPHEN 325 MG TABLET 650 MG PO (09:43)
--- NOTE | 2025-02-09 10:15 | PM.DS ---
DS: Admitting Diagnosis Discharge Date February 09, 2025 Admitting Diagnosis Lumbar spinal stenosis, right foot drop DS: Discharge Diagnosis Discharge Diagnosis (1) Foot drop, right: Code(s): M21.371 - Foot drop, right foot Status: Acute DS: Summary Hospital Course Reason for hospitalization: The patient underwent an elective L3-S1 posterior lumbar laminectomy and bilateral medial facetectomy. The procedure was uncomplicated he tolerated the procedure well. Postoperative day 1 he ambulated passed gas tolerated p.o. diet and voided. His drain put out minimal overnight. The drain was removed and he was deemed stable for discharge. He notes some improvement in ability to move his right foot but he is not quite sure. Hospital Course: The patient underwent an elective L3-S1 posterior lumbar laminectomy and bilateral medial facetectomy. The procedure was uncomplicated he tolerated the procedure well. Postoperative day 1 he ambulated passed gas tolerated p.o. diet and voided. His drain put out minimal overnight. The drain was removed and he was deemed stable for discharge. He notes some improvement in ability to move his right foot but he is not quite sure. Time Spent with Patient Time attestation: Total time spent providing and/or coordinating discharge services: Exam Narrative: Is awake alert no acute distress he moves all his extremities well 5/5 strength with exception of his right foot which is about 3/5 which is at baseline. His dressing is clean dry and intact. Discharge Plan Discharge Patient Disposition: Home Discharge Instructions: Dr Espinoza Discharge Instructions Okay to ambulate. Okay to shower. Do not bathe/swim X 6 weeks. No bending, lifting, twisting or lifting heavier than 1 gallon of milk. Schedule a follow-up clinic appointment in 2 weeks. Patient Language: Botswanan Stand Alone Forms: General Discharge Instructions Discharge Medications: No Action aspirin 81 mg tablet,delayed release (DR/EC) 81 mg PO DAILY Patient Comments: HOLD FOR 7 Days Prior per Olga glucosamine sulfate 1,000 mg capsule 1,000 mg PO BID Rx Instructions: administer with meals omega-3 fatty acids 1,000 mg capsule 200 mg PO DAILY Patient Comments: HOLD [address] Espinoza lisinopril 20 mg tablet 20 mg PO BID Qty: 180 1RF amlodipine 10 mg tablet 10 mg PO DAILY Qty: 90 0RF
== END 2025-02-09 11:07 | disposition home or self-care (01) ==
LOC: ANHSURGERY 08:18 → ANH3MED 18:03
PROVIDERS: PCP Nurse Practitioner Family; Visit Provider Neurological Surgery
PROC: (CPT 63005; principal; 2025-02-08 10:30)
DX: M48.061 Spinal stenosis, lumbar region without neurogenic claudication (principal); M21.371 Foot drop, right foot; E78.5 Hyperlipidemia, unspecified; I10 Essential (primary) hypertension; M19.90 Unspecified osteoarthritis, unspecified site; F17.220 Nicotine dependence, chewing tobacco, uncomplicated; Z79.82 Long term (current) use of aspirin; Z98.890 Other specified postprocedural states; Z80.9 Family history of malignant neoplasm, unspecified; Z82.49 Family history of ischemic heart disease and other diseases of the circulatory system
CPT/HCPCS: 63047; 63048 ×2; 36415; 86850; 86900; 86901; 97116; 97161; 97165; 99199; A9270; J0690; J1100; J2003; J2250; J2405; J2704; J3010; J7120